=== PATIENT | male | born 1950 ===

== ENCOUNTER 2017-05-29 11:25 | Day surgery (SDC) | payer OTHER ==
[~2017-05-29] VITALS: Ht 170.2 cm; Wt 106.9 kg
[~2017-05-29 11:25] MED LIST: Aspirin EC81 MG; METO25ER PO; NAPR500 PO; Nitrostat0.4 MG; Tapazole5 MG PO
== END 2017-05-29 13:12 | disposition home or self-care (01) ==
LOC: ORSCSDS 11:25
PROVIDERS: Internal Medicine Gastroenterology
PROC: 0DBL8ZX Excision of Transverse Colon, Via Natural or Artificial Opening Endoscopic, Diagnostic (ICD-10-PCS; principal; 2017-05-29 13:15)
PROC: 0DBP8ZX Excision of Rectum, Via Natural or Artificial Opening Endoscopic, Diagnostic (ICD-10-PCS; principal; 2017-05-29 13:15)
PROC: 0DBN8ZX Excision of Sigmoid Colon, Via Natural or Artificial Opening Endoscopic, Diagnostic (ICD-10-PCS; principal; 2017-05-29 13:15)
DX: Z12.11 Encounter for screening for malignant neoplasm of colon (principal); D12.3 Benign neoplasm of transverse colon; D12.5 Benign neoplasm of sigmoid colon; K62.1 Rectal polyp; K64.8 Other hemorrhoids; I10 Essential (primary) hypertension; G47.33 Obstructive sleep apnea (adult) (pediatric); E78.5 Hyperlipidemia, unspecified; E66.01 Morbid (severe) obesity due to excess calories; Z68.36 Body mass index [BMI] 36.0-36.9, adult; Z87.891 Personal history of nicotine dependence; Z79.82 Long term (current) use of aspirin; Z79.899 Other long term (current) drug therapy
CPT/HCPCS: 88305; J7120

== ENCOUNTER → 2019-07-19 | Outpatient (CLI) | payer OTHER | END | disposition home or self-care (01) | LOC: LAB EV 09:30 → LAB SHORT 09:30 | DX: Z11.59 Encounter for screening for other viral diseases (principal); E11.9 Type 2 diabetes mellitus without complications | CPT/HCPCS: 36415; 83036; 86803 ==

== ENCOUNTER → 2020-04-09 | Outpatient (CLI) | payer OTHER ==
[2020-04-09 08:13] LABS: BASOPHILS ABSOLUTE AUTO 0.02 K/mm3 (0.00-0.23); BASOPHILS PERCENT AUTO 0 % (0-2); EOSINOPHILS PERCENT AUTO 0 % (0-6); Hematocrit 38.4 % (37.0-53.0); Hemoglobin 12.7 g/dL (13.5-17.5); IMMATURE GRAN ABSOLUTE AUTO 0.14 K/mm3 (0.00-0.10); IMMATURE GRAN PERCENT AUTO 1 % (0-1); LYMPHOCYTES PERCENT AUTO 6 % (21-46); MONOCYTES ABSOLUTE AUTO 1.14 K/mm3 (0.16-1.47); MONOCYTES PERCENT AUTO 7 % (4-13); Mean Corpuscular HGB 27.9 pg (26.0-34.0); Mean Corpuscular HGB Conc 33.1 g/dL (31.5-36.5); Mean Corpuscular Volume 84 fL (80-100); Mean Platelet Volume 12.8 fL (9.1-12.4); NEUTROPHILS ABSOLUTE AUTO 14.19 K/mm3 (1.96-9.15); NEUTROPHILS PERCENT AUTO 86 % (41-73); Platelet Count 209 K/mm3 (150-400); RDW Coefficient Variation 14.7 % (11.7-14.2); RDW Standard Deviation 45.1 fL (35.1-46.3); Red Blood Cell Count 4.55 M/mm3 (4.30-5.90); White Blood Cell Count 16.49 K/mm3 (4.00-11.30)
[2020-04-09 08:26] LABS: Albumin, Blood 4.3 g/dL (3.4-5.0); Albumin/Globulin Ratio 1.2 (0.8-1.8); Bilirubin, Total 0.4 mg/dL (0.1-1.0); Bun/Creatinine Ratio 27.3 (12.0-20.0); Calcium, Blood 9.5 mg/dL (8.5-10.1); Creatinine, Blood 1.21 mg/dL (0.60-1.20); Globulin, Blood 3.7 g/dL (2.2-4.0); Potassium, Blood 4.3 mmol/L (3.5-5.5)
[2020-04-09 11:36] LABS: Source, Urine Clean Catch
[2020-04-09 12:29] LABS: White Blood Cells, Urine 0-2 /hpf (0-5)
[2020-04-09 12:30] LABS: Bacteria Not Seen /hpf; Red Blood Cells, Urine 0-2 /hpf (0-2); Squamous Epithelial Cells Few /hpf (Few)
== END | disposition home or self-care (01) ==
LOC: PLD 08:02 → LAB SHORT 08:02
PROVIDERS: General Practice
DX: E05.90 Thyrotoxicosis, unspecified without thyrotoxic crisis or storm (principal); E11.65 Type 2 diabetes mellitus with hyperglycemia; R53.81 Other malaise; R31.9 Hematuria, unspecified
CPT/HCPCS: 80053; 81015; 83036; 84439; 84443; 84481; 85025; 87077; 87086; 87147; 87186

== ENCOUNTER → 2020-11-23 | Outpatient (CLI) | payer OTHER | END | disposition home or self-care (01) | LOC: LAB 12:25 → LAB SHORT 12:25 | DX: R30.0 Dysuria (principal) | CPT/HCPCS: 87077; 87086; 87186 ==

== ENCOUNTER 2021-03-02 04:15 | Observation (INO) | payer OTHER ==
[~2021-03-02] VITALS: Ht 170.2 cm; Wt 101.5 kg
[~2021-03-02 04:15] MED LIST changes: +METHIMAZOLE5 M1 PO; +NITR.4SL SL; -Nitrostat0.4 MG; -Tapazole5 MG PO
[2021-03-02 04:49] LABS: BASOPHILS ABSOLUTE AUTO 0.07 K/mm3 (0.00-0.23); BASOPHILS PERCENT AUTO 1 % (0-2); EOSINOPHILS ABSOLUTE AUTO 0.34 K/mm3 (0.00-0.68); EOSINOPHILS PERCENT AUTO 5 % (0-6); Hematocrit 34.9 % (37.0-53.0); Hemoglobin 11.3 g/dL (13.5-17.5); IMMATURE GRAN ABSOLUTE AUTO 0.02 K/mm3 (0.00-0.10); IMMATURE GRAN PERCENT AUTO 0 % (0-1); LYMPHOCYTES ABSOLUTE AUTO 3.12 K/mm3 (0.84-5.20); LYMPHOCYTES PERCENT AUTO 43 % (21-46); MONOCYTES PERCENT AUTO 10 % (4-13); Mean Corpuscular HGB 27.9 pg (26.0-34.0); Mean Corpuscular HGB Conc 32.4 g/dL (31.5-36.5); Mean Corpuscular Volume 86 fL (80-100); NEUTROPHILS ABSOLUTE AUTO 3.06 K/mm3 (1.96-9.15); NEUTROPHILS PERCENT AUTO 42 % (41-73); Platelet Count 187 K/mm3 (150-400); RDW Coefficient Variation 15.7 % (11.7-14.2); RDW Standard Deviation 49.5 fL (35.1-46.3); Red Blood Cell Count 4.05 M/mm3 (4.30-5.90); White Blood Cell Count 7.31 K/mm3 (4.00-11.30)
[2021-03-02 05:13] LABS: Alanine Aminotransfer (ALT/SGP 34 U/L (12-78); Albumin, Blood 3.9 g/dL (3.4-5.0); Albumin/Globulin Ratio 1.1 (0.8-1.8); Alk Phos 77 U/L (50-136); Anion Gap 10 mmol/L (6-16); Aspartate Aminotrans (AST/SGOT 25 U/L (12-37); Bilirubin, Total 0.2 mg/dL (0.1-1.0); Blood Urea Nitrogen 12 mg/dL (8-24); Bun/Creatinine Ratio 16.6 (12.0-20.0); CO2, Blood 24 mmol/L (21-32); Calcium, Blood 8.8 mg/dL (8.5-10.1); Chloride, Blood 105 mmol/L (98-108); Creatinine, Blood 0.72 mg/dL (0.60-1.20); Globulin, Blood 3.6 g/dL (2.2-4.0); Glomerular Filtration Rate >60 (60-); Glucose, Blood 158 mg/dL (70-99); Magnesium, Blood 2.3 mg/dL (1.6-2.4); Potassium, Blood 3.4 mmol/L (3.5-5.5); Sodium, Blood 139 mmol/L (136-145); Total Protein, Blood 7.5 g/dL (6.4-8.2); Troponin I <0.015 ng/mL (0.000-0.040)
[2021-03-02 06:14] LABS: Source, Urine Voided
[2021-03-02 06:15] LABS: Bilirubin, Urine Neg (Neg); Blood, Urine 2+ (Neg); Glucose Qualitative, Urine 1+ (Neg); Ketones, Urine Neg (Neg); Leukocyte Esterase, Urine 1+ (Neg); Nitrite, Urine Neg (Neg); Protein, Urine 2+ (Neg); Specific Gravity, Urine 1.015 (1.003-1.022); Urobilinogen, Urine NORM (Normal); pH, Urine 6.5 (5.0-8.0)
[2021-03-02 06:31] LABS: Appearance, Urine Clear (Clear); Color, Urine Yellow (P-Yellow); Red Blood Cells, Urine 0-2 /hpf (0-2); Squamous Epithelial Cells Rare /hpf (Few); White Blood Cells, Urine 0-2 /hpf (0-5)
[2021-03-02 06:32] LABS: Bacteria Not Seen /hpf
[2021-03-02 06:47] LABS: Influenza A, PCR NEGATIVE (NEGATIVE); Influenza B, PCR NEGATIVE (NEGATIVE); Resp Syncytial Virus, PCR NEGATIVE (NEGATIVE); SARS-Cov-2 (COVID-19) PCR, MMC NEGATIVE (NEGATIVE)
[2021-03-02] MEDS ORDERED: LISI20 PO (08:06)
[2021-03-02] MEDS ORDERED: GABA100 PO (08:06)
[2021-03-02] MEDS ORDERED: METF500 PO (08:06)
[2021-03-02] MEDS ORDERED: ZINC15 PO (08:08)
[2021-03-02] MEDS ORDERED: ACET325 PO (08:08)
[2021-03-02] MEDS ORDERED: OMEGA-3 + D SO1 EACH PO (08:08)
[2021-03-02] MEDS ORDERED: CBD OIL (08:09)
[2021-03-02] MEDS ORDERED: ATOR20 PO (08:10)
--- NOTE | 2021-03-02 16:25 | NUR ---
I spoke with the patient's , Maria E Longo, ([phone]). She reports that the patient is independent in their home but, uses a walker if needed. They have a ramp at the entrance of their home. There is no preference for Home Health Services. [facility] is the preference for [facility]. She states the patient does still drive but, she can also help with transportation if needed. The patient manages his own medications. She also states she currently works as a caregiver and can help with ADLs if needed. Per PT evaluation, patient could possibly follow up as outpatient with physical therapy.
--- NOTE | 2021-03-02 17:33 | NUR ---
DAY SHIFT SUMMARY 70 YEAR OLD MALE WITH VERTIGO. HAS HAD CT AND MRI. STATES DIZZINESS WOKE HIM FROM SLEEP LAST NIGHT AND HE CALLED EMS. PHYSICAL THERAPY WORKED WITH PT PROVIDING FREDY-MAICOL PIKE/EPILI MANUVER. PER PHYSICAL THERAPY , RT SIDED TORTIONAL NYSTAGYMS IS NOTED. CIWA SCORES WERE RECORDED AND REPORTED TO MD. PT IS ON RA WITH CPAP AT NIGHT. ORIENTED TO ROOM AND CALL LIGHT, CALL LIGHT WITHIN REACH OF PT.
--- NOTE | 2021-03-02 19:10 | NUR ---
RECEIVED BEDSIDE REPORT FROM JJ RN. PT A/O. STATES HIS EYES STILL ARE MOVING ON THEIR OWN, A LITTLE DIZZY, NO NAUSEA, NO SOB. ON RA. USES FWW WITH SBA. BED ALARMED SET FOR SAFETY. WILL PROVIDE CARE T/O SHIFT. CALL LT IN REACH.
--- NOTE | 2021-03-02 21:25 | NUR ---
PT USED CALL LT APPROPRIATELY FOR THE BATHROOM. STATES THE DIZZINESS IS BETTER. USED FWW. STATES MOSTLY IT'S HIS KNEES THAT BOTHER HIM WHEN HE'S WALKING. CIWA IS ZERO. NO S/S OF WITHDRAWALS. PT IS ABLE TO PLACE CPAP MASK ON. CONT BIOX IN PLACE. SATS 97%. HR 75. SCD'S ON. ICED TEA WITH SPLENDID GIVEN TO PT AND NEW ICE WATER. NO NAUSEA NOTED AFTER DRINKING THE ICED TEA. NO OTHER NEEDS. CALL LT IN REACH. BED ALARM ON.
--- NOTE | 2021-03-02 22:34 | NUR ---
PT UP THE BR USING FWW WITH SBA. PT REQUESTED TO NOT WEAR SCD'S FOR AWHILE, THEY WERE CAUSING HIS LEGS TO BE RESTLESS. NO OTHER NEEDS. CALL LT IN REACH. BED ALARM ON.
--- NOTE | 2021-03-02 22:39 | NUR ---
NO S/S OF WITHDRAWALS. CIWA ZERO.
--- NOTE | 2021-03-02 23:23 | NUR ---
PT UP TO THE BATHROOM USING FWW. STATES HE'S HAVING A HARD TIME FALLING ASLEEP BECAUSE NEEDING TO GET UP SO MUCH TO USE THE BATHROOM. PT HAS BEEN USING CALL LT APPROPRIATELY. BED ALARM IS ON.
--- NOTE | 2021-03-02 23:33 | NUR ---
CIWA 4 FOR RESTLESSNESS. NO OTHER SYMPTOMS. CALL LT IN REACH.
--- NOTE | 2021-03-03 01:01 | NUR ---
PT UP TO THE BATHROOM USING FWW, SBA. NO ACUTE CHANGES. STATES HE ACTUALLY SLEPT. NO NAUSEA REPORTED. BED ALARM ON. CALL LT IN REACH.
--- NOTE | 2021-03-03 03:34 | NUR ---
PT UP TO BATHROOM USING FWW, DENIES NAUSEA, FEELING BETTER.
--- NOTE | 2021-03-03 03:35 | NUR ---
CIWA ZERO. NO S/S OF ETOH WITHDRAWALS.
--- NOTE | 2021-03-03 03:58 | NUR ---
SHIFT SUMMARY: A/O. ON RA. CPAP AT NIGHT. CONT BIOX 97%. CIWA'S MOSTLY ZERO, ONE 4 D/T RESTLESSNESS AT BEGINNING OF SHIFT. LAST KNOWN ETOH DRINK SUNDAY NIGHT, 03/01. NO COMPLAINTS OF NAUSEA OR DIZZINESS. STATES HE USES WALKER AT HOME AND HERE IN THE HOSPITAL D/T HIS BAD KNEES. USED FWW TO BATHROOM SEVERAL TIMES. WORE CPAP T/O SHIFT AND RESTED WELL. NO ACUTE CHANGES OR COMPLAINTS. WILL CONTINUE TO PROVIDE CARE UNTIL SHIFT REPORT. CALL LT IN REACH.
[2021-03-03 05:10] LABS: BASOPHILS ABSOLUTE AUTO 0.05 K/mm3 (0.00-0.23); BASOPHILS PERCENT AUTO 1 % (0-2); EOSINOPHILS ABSOLUTE AUTO 0.14 K/mm3 (0.00-0.68); EOSINOPHILS PERCENT AUTO 2 % (0-6); Hematocrit 34.9 % (37.0-53.0); Hemoglobin 10.9 g/dL (13.5-17.5); IMMATURE GRAN ABSOLUTE AUTO 0.02 K/mm3 (0.00-0.10); IMMATURE GRAN PERCENT AUTO 0 % (0-1); LYMPHOCYTES ABSOLUTE AUTO 1.56 K/mm3 (0.84-5.20); LYMPHOCYTES PERCENT AUTO 21 % (21-46); MONOCYTES ABSOLUTE AUTO 0.79 K/mm3 (0.16-1.47); MONOCYTES PERCENT AUTO 11 % (4-13); Mean Corpuscular HGB 27.2 pg (26.0-34.0); Mean Corpuscular HGB Conc 31.2 g/dL (31.5-36.5); Mean Corpuscular Volume 87 fL (80-100); Mean Platelet Volume 12.3 fL (9.1-12.4); NEUTROPHILS ABSOLUTE AUTO 4.94 K/mm3 (1.96-9.15); NEUTROPHILS PERCENT AUTO 66 % (41-73); Platelet Count 175 K/mm3 (150-400); RDW Coefficient Variation 15.5 % (11.7-14.2); RDW Standard Deviation 49.5 fL (35.1-46.3); Red Blood Cell Count 4.01 M/mm3 (4.30-5.90)
[2021-03-03 05:55] LABS: Magnesium, Blood 2.3 mg/dL (1.6-2.4)
[2021-03-03 06:00] LABS: Albumin, Blood 3.5 g/dL (3.4-5.0); Anion Gap 10 mmol/L (6-16); Blood Urea Nitrogen 11 mg/dL (8-24); Bun/Creatinine Ratio 13.8 (12.0-20.0); CO2, Blood 23 mmol/L (21-32); Calcium, Blood 8.7 mg/dL (8.5-10.1); Chloride, Blood 104 mmol/L (98-108); Glomerular Filtration Rate >60 (60-); Glucose, Blood 141 mg/dL (70-99); Potassium, Blood 3.4 mmol/L (3.5-5.5); Sodium, Blood 137 mmol/L (136-145)
[2021-03-03] MEDS ORDERED: NAPR500 PO (11:43)
[2021-03-03] MEDS ORDERED: MECL25 PO (11:48)
[2021-03-03] MEDS ORDERED: Prednisone10 MG PO (11:49)
--- NOTE | 2021-03-03 12:38 | NUR ---
PT AWAKE DURING SHIFT REPORT, RESTING QUIETLY WITH CPAP ON. PLEASANT AND CO-OP WITH CARE. CALLED APPROPRIATELY TO GO TO [facility], USING FWW AND SBA FOR SAFETY ONLY D/T VERTIGO ON ADMISSION. PT REPORTING IT IMPROVED. PT MEDICALLY STABLE; D/C ORDERS PLACED. MARKET INVESTIGATOR CALLED TO [employer] REP PT. D/C INSTRUCTIONS REVIEWED WITH PT; VERBALIZED UNDERSTANDING. IV SITE D/C'D WNL'S. PT'S HERE FOR P/U. PT ASSISTED OUT VIA W/C.
--- NOTE | 2021-03-03 15:33 | NUR ---
Per chart review with Dr. Dunne, patient appropriate for discharge. I scheduled a hospital follow-up with Xavier Hinkle on Sunday, March 07, 2021 at 01:50 PM. I contacted patient's who is able to provide transportation upon discharge. Patient agreeable to discharge plan and denies barriers to returning home.
== END 2021-03-03 12:19 | disposition home or self-care (01) ==
LOC: ER 04:15 → MEDS 04:16
PROVIDERS: Emergency Medicine; Family Medicine; ADMIT Internal Medicine
DX: R42 Dizziness and giddiness (principal); E87.6 Hypokalemia; E11.9 Type 2 diabetes mellitus without complications; I10 Essential (primary) hypertension; G47.33 Obstructive sleep apnea (adult) (pediatric); H55.00 Unspecified nystagmus; R01.1 Cardiac murmur, unspecified; H83.09 Labyrinthitis, unspecified ear; E78.5 Hyperlipidemia, unspecified; F10.10 Alcohol abuse, uncomplicated; E05.90 Thyrotoxicosis, unspecified without thyrotoxic crisis or storm; Z87.891 Personal history of nicotine dependence; Z20.822 Contact with and (suspected) exposure to COVID-19; Z88.5 Allergy status to narcotic agent
CPT/HCPCS: 0241U; 36415; 70450; 70551; 80053; 80069; 81001; 82947; 83735; 84484; 85025; 87077; 87086; 87186; 93005; 93010; 94660; 94762; 96374; 96375; 97110; 97162; 99285-25; A9270; C8929; G0378; J1650; J2060; J2405; J7030; J7512; Q9957

== ENCOUNTER 2021-12-21 08:06 | Day surgery (SDC) | payer OTHER ==
[~2021-12-21] VITALS: Ht 165.1 cm; Wt 95.7 kg
[~2021-12-21 08:06] MED LIST changes: +ACET325 PO; +ASPI81CH PO; +ATOR20 PO; +CBD OIL; +GABA100 PO; +LISI20 PO; +MECL25 PO; +METF500 PO; +OMEGA-3 + D SO1 EACH PO; +Prednisone10 MG PO; +ZINC15 PO
[2021-12-21] MEDS ORDERED: GABA100 PO (08:53)
--- NOTE | 2021-12-21 09:48 | NUR ---
Ambulatory in Day Surgery TO RESTROOM AND BACK, WALKER USED. History, Chart, Medications and Allergies reviewed before start of procedure. Patient confirms NPO status and agrees with scheduled surgery.
--- NOTE | 2021-12-21 10:56 | NUR ---
PATIENT'S POSESSION INCLUDING WALKER, BACKPACK, DENTURES AND JACKET TAKEN TO ROOM 216 WITH PATIENT STICKERS ON THEM.
--- NOTE | 2021-12-21 18:34 | NUR ---
SHIFT SUMMARY NEWA DMIT TO UNIT POST OP DAY [address] GOLDSTEIN. ALERT AND ORIENTED. UP WITH PHYSICAL THERAPY TO AMBULATE IN ROOM WITH FWW AND GAIT BELT. VOIDING WELL. TOLERATING ADA DIET AND LIQUIDS. SALINE LOCKED. HOME CPAP SET UP IN ROOM AND REVIEWED BY RT. MEDICATED FOR PAIN PER EMAR. LEFT KNEE WITH AQUACEL, GUILLERMO WRAP, COMPRESSION STOCKING, PAS, AND POLAR PACK. SPOUSE ATTENTIVE IN ROOM THROUGH AFTERNOON. PLAN FOR DISCHARGE HOME TOMORROW 12/22/21 AFTER CLEARING PHYSICAL THERAPY.
--- NOTE | 2021-12-21 18:43 | NUR ---
"Spiritual Care | Pt. request Pt. is sitting up in a chair eating dinner and welcomes my visit. Spouse is present. Pt. is pleasant and displays evidence of great hope. Pt. and spouse welcomed spiritual care even if Father Atif wasn't available. Establish rapport and pray with and for the Pt. Pt. and spouse verbalize gratitude for the spiritual care visit."
--- NOTE | 2021-12-22 04:59 | NUR ---
SHIFT SUMMARY NO ACUTE CHANGES TO REPORT THIS SHIFT. PT POD 0 LEFT KNEE REPAIR, HE HAS DONE WELL OVERNIGHT, AND PAIN HAS BEEN WELL MANAGED WITH MEDS PER EMAR. PT HAS BEEN UP AMBULATING TO THE BATHROOM WITH FWW AND IS TOLERATING. DRESSING TO KNEE C/D/I. PT ABLE TO WIGGLE TOES AND DENIES N/T IN EXT. POST OP VITALS STABLE. BED IN LOWEST POSITION, CALL LIGHT WITHIN REACH.
[2021-12-22 05:15] LABS: BASOPHILS ABSOLUTE AUTO 0.01 K/mm3 (0.00-0.23); BASOPHILS PERCENT AUTO 0 % (0-2); EOSINOPHILS PERCENT AUTO 0 % (0-6); Hemoglobin 10.6 g/dL (13.5-17.5); IMMATURE GRAN ABSOLUTE AUTO 0.03 K/mm3 (0.00-0.10); IMMATURE GRAN PERCENT AUTO 0 % (0-1); LYMPHOCYTES ABSOLUTE AUTO 0.84 K/mm3 (0.84-5.20); LYMPHOCYTES PERCENT AUTO 8 % (21-46); MONOCYTES PERCENT AUTO 6 % (4-13); Mean Corpuscular HGB 31.8 pg (26.0-34.0); Mean Corpuscular HGB Conc 34.2 g/dL (31.5-36.5); Mean Corpuscular Volume 93 fL (80-100); Mean Platelet Volume 12.4 fL (9.1-12.4); NEUTROPHILS ABSOLUTE AUTO 9.61 K/mm3 (1.96-9.15); NEUTROPHILS PERCENT AUTO 86 % (41-73); Platelet Count 170 K/mm3 (150-400); RDW Coefficient Variation 13.2 % (11.7-14.2); RDW Standard Deviation 45.4 fL (35.1-46.3); Red Blood Cell Count 3.33 M/mm3 (4.30-5.90); White Blood Cell Count 11.19 K/mm3 (4.00-11.30)
[2021-12-22 06:05] LABS: Bun/Creatinine Ratio 19.8 (12.0-20.0); Calcium, Blood 8.5 mg/dL (8.5-10.1); Creatinine, Blood 1.06 mg/dL (0.60-1.20); Magnesium, Blood 2.2 mg/dL (1.6-2.4); Potassium, Blood 4.1 mmol/L (3.5-5.5)
[2021-12-22] MEDS ORDERED: ASPI81CH PO (10:21)
[2021-12-22] MEDS ORDERED: HYDMOR2 PO (10:22)
[2021-12-22] MEDS ORDERED: PROM25 PO (10:23)
[2021-12-22] MEDS ORDERED: SULTRIDS PO (10:24)
--- NOTE | 2021-12-22 11:50 | NUR ---
IV RFA D/C'D INTACT, SITE CLEAR.
--- NOTE | 2021-12-22 12:20 | NUR ---
DISCHARGE PER KISHAN AVRGAS PT WAS DISCHARGED AT 1220. DISCHARGE INSTRUCTIONS AND DRESSINGS PROVIDED BY KISHAN VARGAS RN.
--- NOTE | 2021-12-22 12:20 | NUR ---
PATIENT D/C'D HOME WITH SPOUSE AT THIS TIME. BOTH STATE UNDERSTANDING ON MEDS, WOUND CARE, ACTIVITY, OP PT, F/U APPY, ETC. NO C/O AT THIS TIME.
--- NOTE | 2021-12-22 13:34 | NUR ---
ELEVATED BP BP ELEVATED AT 141/110 AT TIME OF DISCHARGE. PER KISHAN MUNOZ PT REPORTED PAIN AND HAD JUST GOTTEN DRESSED PRIOR TO VS CHECK. PT CONTACTED VIA PHONE AND EDUCATED TO CHECK HIS BLOOD PRESSURE AND EDUCATED TO MAKE SURE HE FOLLOWS UP WITH HIS PCP REGARDING HIGH BLOOD PRESSURE AND TO MONITOR OVER THE NEXT 2-3 DAYS FOR SAFETY.
== END 2021-12-22 12:20 | disposition home or self-care (01) ==
LOC: ORSCMMR 08:06 → ORD 10:45 → ORSCMMR 10:45 → SURS 14:13 → ORSCMMR 12-22 12:20
PROVIDERS: Orthopaedic Surgery
PROC: 0SRD0J9 Replacement of Left Knee Joint with Synthetic Substitute, Cemented, Open Approach (ICD-10-PCS; principal; 2021-12-21 10:45)
DX: M17.12 Unilateral primary osteoarthritis, left knee (principal); I10 Essential (primary) hypertension; E78.5 Hyperlipidemia, unspecified; G47.33 Obstructive sleep apnea (adult) (pediatric); E11.9 Type 2 diabetes mellitus without complications; E03.9 Hypothyroidism, unspecified; Z87.891 Personal history of nicotine dependence; Z79.899 Other long term (current) drug therapy; E66.9 Obesity, unspecified; Z68.35 Body mass index [BMI] 35.0-35.9, adult; Z79.84 Long term (current) use of oral hypoglycemic drugs
CPT/HCPCS: 36415; 73560-LT; 80048; 82947; 83735; 85025; 94762; 97110; 97116; 97162; 97530; A9270; C1713; C1776; J0171; J0690; J0735; J1100; J1815; J1885; J2250; J2405; J2704; J2795; J3010; J7120

== ENCOUNTER 2022-08-12 12:07 | Emergency (ER) | payer OTHER ==
[~2022-08-12] VITALS: Ht 165.1 cm; Wt 94.3 kg
[~2022-08-12 12:07] MED LIST changes: +HYDMOR2 PO; +PROM25 PO; +SULTRIDS PO
[2022-08-12 12:14] VITALS: BP 164/86
[2022-08-12] MEDS ORDERED: GABA300 PO (13:03)
[2022-08-12] MEDS ORDERED: Robaxin750 MG PO (13:03)
== END 2022-08-12 13:09 | disposition home or self-care (01) ==
LOC: ER 12:07
DX: M54.42 Lumbago with sciatica, left side (principal); Z88.5 Allergy status to narcotic agent; Z79.899 Other long term (current) drug therapy; Z79.84 Long term (current) use of oral hypoglycemic drugs; Z79.82 Long term (current) use of aspirin; I10 Essential (primary) hypertension; E11.9 Type 2 diabetes mellitus without complications; E78.5 Hyperlipidemia, unspecified; M19.90 Unspecified osteoarthritis, unspecified site; Z87.891 Personal history of nicotine dependence
CPT/HCPCS: 96372; 99283-25; A9270; J1885